=== PATIENT | female | born 1975 | race Caucasian/White ===

== ENCOUNTER → 2020-09-10 | Outpatient (CLI) | payer BC ==
--- NOTE | 2020-09-10 12:22 | Diagnostic Imaging Report ---
Indication: Routine screening. No prior studies are available for comparison. This is a baseline study. 2-D and 3-D bilateral screening mammography was performed with CAD. Scattered fibroglandular densities are identified bilaterally. No mass or malignant appearing microcalcifications are seen. Axillae are unremarkable. IMPRESSION: BI-RADS Category 1 No mammographic features suspicious for malignancy are identified. ACR BI-RADS Category 1: Negative. Result letter will be mailed to the patient. Note: At least 10% of breast cancer is not imaged by mammography. Dictated by: Dictated on workstation # [id number]
== END ==
LOC: RAD 10:46
PROVIDERS: ATTEND Obstetrics & Gynecology
DX: Z12.31 Encounter for screening mammogram for malignant neoplasm of breast (principal)
CPT/HCPCS: 77063; 77067

== ENCOUNTER 2020-12-31 06:49 | Outpatient (CLI) | payer BC ==
[~2020-12-31] VITALS: Ht 160 cm; Wt 81.4 kg
[2021-01-03] MEDS ORDERED: ESTR2TAB PO (10:15)
== END 2021-01-03 10:19 | disposition home or self-care (01) ==
LOC: PREOP 06:49
PROVIDERS: ATTEND Obstetrics & Gynecology
DX: Z01.818 Encounter for other preprocedural examination (principal)

== ENCOUNTER 2021-01-07 11:04 | Day surgery (SDC) | payer BC ==
[2021-01-07] VITALS (11 sets, daily range): BP systolic 90–134; BP diastolic 47–78
[~2021-01-07] VITALS: Ht 160 cm; Wt 81.4 kg
[~2021-01-07 11:04] MED LIST: ESTR2TAB PO
[2021-01-07] MEDS ORDERED: LIDOCAINE/EPI 1%-1:100,000 (XYLOCAINE) 20ML ONE (11:10)
[2021-01-07] MEDS ORDERED: ESTRADIOL VAGINAL CREAM 42.5 GM (ESTRACE) VG ONE (11:10)
[2021-01-07] MEDS ORDERED: ceFAZolin INJECTION 1,000 MG in WATER (STERILE) FOR INJECTION 10 ML IV ONE (11:45)
[2021-01-07] MEDS ORDERED: LACTATED RINGERS 1,000 ML IV PRN (11:45)
[2021-01-07 11:47] LABS: BASOPHILS % (AUTO) 0 % (0-10); EOSINOPHILS % (AUTO) 0 % (0-10); HEMATOCRIT 39 % (35-52); HEMOGLOBIN 12.2 g/dL (11.5-16.0); LYMPHOCYTES # (AUTO) 1.3 10^3/uL (1.0-4.0); LYMPHOCYTES % (AUTO) 24 % (12-44); MEAN CORPUSCULAR HEMOGLOBIN 28 pg (25-34); MEAN CORPUSCULAR HGB CONC 32 g/dL (32-36); MEAN CORPUSCULAR VOLUME 88 fL (80-99); MEAN PLATELET VOLUME 8.9 fL (9.0-12.2); MONOCYTES # (AUTO) 0.4 10^3/uL (0.0-1.0); MONOCYTES % (AUTO) 7 % (0-12); NEUTROPHILS # (AUTO) 3.6 10^3/uL (1.8-7.8); NEUTROPHILS % (AUTO) 69 % (42-75); PLATELET COUNT 305 10^3/uL (130-400); WHITE BLOOD COUNT 5.3 10^3/uL (4.3-11.0)
[2021-01-07] MEDS ORDERED: SEVOFLURANE (ULTANE) 15 ML INHAL SOLN ONE ×2 (11:53→14:08)
[2021-01-07] MEDS ORDERED: LIDOCAINE PF 2% 5 ML (XYLOCAINE) VIAL ONE (11:54)
[2021-01-07] MEDS ORDERED: fentaNYL INJ 100 MCG/2 ML AMP ONE ×2 (11:54→13:40)
[2021-01-07] MEDS ORDERED: ROCURONIUM 10 MG/ML 5 ML SYRINGE IV ONE (11:54)
[2021-01-07] MEDS ORDERED: proPOfol 200 MG/20 ML (DIPRIVAN) VIAL IV ONE (11:54)
[2021-01-07] MEDS ORDERED: MIDAZOLAM 2 MG/2 ML (VERSED) VIAL ONE (11:54)
[2021-01-07] MEDS ORDERED: ONDANSETRON 4 MG/2 ML (SDV) Z0FRAN ONE (11:54)
[2021-01-07] MEDS ORDERED: ceFAZolin INJECTION 1,000 MG ONE (11:56)
[2021-01-07] MEDS ORDERED: WATER (STERILE) FOR INJECTION 10 ML ONE ×2 (12:01→14:39)
--- NOTE | 2021-01-07 13:51 | Progress Note-Pre Operative ---
Pre-Operative Progress Note H&P Reviewed The H&P was reviewed, patient examined and no changes noted. Date Seen by Provider: Jan 07, 2021 Time Seen by Provider: 12:00 Date H&P Reviewed: Jan 07, 2021 Time H&P Reviewed: 12:00 Pre-Operative Diagnosis: CHANDLER VERGARA MD Jan 07, 2021 13:51
--- NOTE | 2021-01-07 13:52 | Progress Note-Post Operative ---
Post-Operative Progess Note Surgeon (s)/Lumber Marker (s) Surgeon CHANDLER ROSARIO MD Lumber Marker: JASE IQBAL MD Pre-Operative Diagnosis VIKY Post-Operative Diagnosis SAME Procedure & Operative Findings Date of Procedure 01/07/21 Procedure Performed/Findings PVS AND CYSTO Anesthesia Type GENERAL Estimated Blood Loss Estimated blood loss (mL): NONE Specimens/Packing Specimens Removed NONE Packing: ESTRACE VAG PACK CHANDLER ROSARIO MD Jan 07, 2021 13:52
--- NOTE | 2021-01-07 14:34 | Progress Note-Pre Operative ---
Pre-Operative Progress Note H&P Reviewed The H&P was reviewed, patient examined and no changes noted. Date Seen by Provider: Jan 07, 2021 Time Seen by Provider: 12:10 Date H&P Reviewed: Jan 07, 2021 Time H&P Reviewed: 12:00 Pre-Operative Diagnosis: Menorrhagia/uterovaginal prolapse/stress urinary incontinence JASE HERNANDEZ MD Jan 07, 2021 14:34
--- NOTE | 2021-01-07 14:35 | Progress Note-Post Operative ---
Post-Operative Progess Note Surgeon (s)/Police Manager (s) Surgeon JASE HERNANDEZ MD Police Manager: JASE IQBAL MD Pre-Operative Diagnosis Menorrhagia/uterovaginal prolapse/stress urinary incontinence Post-Operative Diagnosis Same Procedure & Operative Findings Date of Procedure 01/07/21 Procedure Performed/Findings Total laparoscopic hysterectomy with bilateral salpingo-oophorectomy as well as anterior and posterior colporrhaphy's with enterocele repair and with Dr. Maldonado doing a pubovaginal sling and cystoscopy Anesthesia Type GETA Estimated Blood Loss Estimated blood loss (mL): 300cc Specimens/Packing Specimens Removed Uterus fallopian tubes and ovaries Packing: ESTRACE VAG PACKWith Kerlix gauzJASE Mcgee MD Jan 07, 2021 14:35
[2021-01-07] MEDS ORDERED: OXYC1TAB87 PO (14:37)
[2021-01-07] MEDS ORDERED: IBUP-1780 PO (14:37)
[2021-01-07] MEDS ORDERED: DCS100C PO (14:37)
--- NOTE | 2021-01-07 14:38 | Discharge Inst-Surgical ---
Discharge Inst-Surgical Depart Medication/Instructions New, Converted or Re-Newed RX: Transmitted to Pharmacy Consults/Follow Up Patient Instructions: As directed Orders & Referrals Follow Up Appt: Return to clinic on Sunday, January 10, 2021 at 9:30 AM for staple removal Call to make follow up appt. for patient in 4 weeks. Activity: Rest for 24 hours, than as tolerated. Wound Care: May remove Band-Aid tomorrow. Replace as desired. Keep incisions clean and dry. Wash daily with soap and water. Please call in RX to patient pharmacy. Diet: As tolerated-Clear Liquids only if nauseated. Tomorrow, may shower or tub bathe as desired. No driving for 24 hours, no alcoholic beverages for 24 hours, and nothing per vagina (no tampons, douching, or intercourse) for 8 weeks. Patient to return to the clinic as soon as possible for: Temperature greater than 101F, Severe Pain, Foul discharge from incision or vagina, Excessive Bleeding (more than a period). Activity Activity as Tolerated: No Diet Discharge Diet: No Restrictions JASE HERNANDEZ MD Jan 07, 2021 14:38
[2021-01-07] MEDS ORDERED: KETOROLAC 30 MG/ML VIAL ONE (14:39)
[2021-01-07] MEDS ORDERED: ESTROGENS CONJ IV 25 MG/5 ML (PREMARIN) VIAL ONE (14:39)
[2021-01-07] MEDS ORDERED: morphine INJ 10 MG/ML 1ML (SYR OR VIAL) IVP ONE (14:45)
[2021-01-07] MEDS ORDERED: ESTROGENS CONJ INJECTION 25 MG in WATER (STERILE) FOR INJECTION 5 ML IV ONE (14:45)
[2021-01-07] MEDS ORDERED: ONDANSETRON 4 MG/2 ML (SDV) Z0FRAN IVP PRN ×2 (14:45)
[2021-01-07] MEDS ORDERED: fentaNYL INJ 100 MCG/2 ML AMP IVP ONE (14:45)
[2021-01-07] MEDS ORDERED: PROMETHAZINE INJ 25 MG/ML (PHENERGAN) AMP IVP ONE (14:45)
[2021-01-07] MEDS ORDERED: BENZOCAINE/MENTHOL (DERMOPLAST) 56 ML CAN TP PRN (14:45)
[2021-01-07] MEDS ORDERED: KETOROLAC 30 MG/ML VIAL IVP SCH (14:45)
[2021-01-07] MEDS ORDERED: MEPERIDINE (DEMEROL) INJ 50 MG/ML IVP ONE (14:45)
[2021-01-07] MEDS: fentaNYL INJ 100 MCG/2 ML AMP IVP PRN ×3 (16:01→23:18)
[2021-01-07] MEDS: D5 LR IV SOLUTION 1,000 ML IV SCH ×2 (18:00→23:19)
--- NOTE | 2021-01-07 18:12 | OPERATIVE REPORT ---
DATE OF SERVICE: 01/07/2021 PREOPERATIVE DIAGNOSIS: Stress urinary incontinence. POSTOPERATIVE DIAGNOSIS: Stress urinary incontinence. OPERATION PERFORMED: Cystoscopy and pubovaginal sling. SURGEON: Kan Rosario MD. REBAR FABRICATOR: Abigail. COMPLICATIONS: None ANESTHESIA: General. DESCRIPTION OF PROCEDURE: After Dr. Hayes performed the first part of his surgery that he will dictate, I went ahead and inserted a Dowell catheter draining clear urine. I passed the Desara sling instrument on both sides using the described technique. The sling was sitting nicely under the mid urethra with no tension and passage of a curved hemostat easily between it and the underlying tissue. I removed the cystoscope to perform the cystoscopy to confirm the integrity of the bladder, ureteral orifices and urethra with no foreign body and presence of this sling under the mid urethra. I left the bladder at least half full to perform a manual Valsalva maneuver that was negative. I reinserted the Dowell catheter draining clear fluid. Dr. Hayes procedure was the surgery that he will dictate. ESTIMATED BLOOD LOSS: On my part, none. Job ID: [id number] DocumentID: [id number] Dictated Date: 01/07/2021 13:53:56 Breaker Machine Tender Date: 01/07/2021 18:11:59 Dictated By: KAN ROSARIO MD
--- NOTE | 2021-01-07 18:20 | OPERATIVE REPORT ---
DATE OF SERVICE: 01/07/2021 PREOPERATIVE DIAGNOSES: 1. Menorrhagia. 2. Uterovaginal prolapse and stress urinary incontinence. POSTOPERATIVE DIAGNOSES: 1. Menorrhagia. 2. Uterovaginal prolapse and stress urinary incontinence. OPERATIVE PROCEDURE: Total laparoscopic hysterectomy with bilateral salpingo-oophorectomy followed by anterior and posterior vaginal repair with enterocele repair and with Dr. Rojas doing a pubovaginal sling and cystoscopy. OPERATIVE DESCRIPTION: With the patient in the supine position under satisfactory general anesthesia, the patient was repositioned in dorsal lithotomy position and prepped and draped in the usual fashion for abdominal and vaginal surgery using the da Derek for assistance. Weighted speculum placed in posterior fornix of vagina, cervix exposed and graft into single tooth tenaculum. Uterus sounded to 14.5 cm with uterine sound. Cervix was then serially dilated with Gerry dilators to accommodate a Theresa II manipulator, which was placed in the usual manner with a 30 mm colpotomy ring. Sutures of #1 Vicryl placed at 3 and 9 o'clock position to affix the uterus to the manipulator. Dowell catheter was placed in the urinary bladder and patient brought in low dorsal lithotomy position. A 12 mm incision was made superior to the umbilicus. Veress needle was placed through that incision into the abdominal cavity. Correct placement confirmed with water drop test and then the abdomen insufflated with 2.4 liters of carbon dioxide. The Veress needle was removed and a 12 mm Optiview laparoscopic port was placed under direct vision. The abdominal wall was transilluminated and then ports of 8 mm were placed through incisions of those sizes, 9 cm lateral to the umbilicus at a level about 2.5 to 3 cm above the umbilicus. All three port sites were infiltrated with 1% lidocaine with epinephrine prior to incision. The patient now placed in Trendelenburg, allowing the bowel to spill out of the pelvis. There was one adhesion of the omentum noted near the patient's umbilicus internally. The da Derek column was advanced on the patient and docked. Operative instrument placed in right and left lateral ports and I retired to the [employer] Derek console. At the console using the vessel sealer. The adhesion was clamped, cauterized and divided with the vessel sealer. This allowed the omentum to be completed by the pelvis. The uterus was quite lobular fairly markedly enlarged due to what appeared to be fibroids. Both ovaries were atretic appearing, but otherwise normal. Both fallopian tubes were normal. Laparoscope was rotated. The appendix was identified. It was a normal vermiform appendix and left in situ. The procedure was initiated by grasping and elevating the right tube and ovary identifying the ureter medial to that seemed to peristalse and then the mesosalpinx was clamped, cauterized and divided with the vessel sealer. This was continued across to the round ligament, across to the broad ligament to the side of the uterus and down the broad ligament to the cardinal ligament where the dissection was halted. Same procedure performed on the left, eventually allowing for removal of both tubes and ovaries with the uterus. Anterior lower uterine segment peritoneum was now exposed and using monopolar tessa on the right instrument. The peritoneum was divided. The bladder was carefully dissected down off the lower uterine segment and colpotomy incision was started at 12 o'clock position onto the colpotomy ring. An incision was continued circumferentially until the entire colpotomy ring was exposed. The uterus with the tubes and ovaries were still attached, was extracted through the vagina with some difficulty due to a size, but it was removed intact. The entire specimen was sent to pathology for permanent section. Vaginal cuff was now closed with a single suture of V-Loc barbed suture starting from the right angle and continuing all the way across to the left angle in the usual manner achieving good hemostasis and good reapproximation. At this point, the laparoscopic portion of the procedure was halted. There was no abnormal pathology inside and there was no significant bleeding. The operative instruments were removed as were the ports. The abdomen was evacuated of the insufflating gas in the process of removing the ports. All three skin incisions were stapled after closing the fascia at the supraumbilical incision with a sexfqf-ll-lojuy suture of 2-0 Vicryl. The patient was now repositioned in dorsal lithotomy position for the anterior and posterior vaginal repairs. Anterior repair was affected by placing a weighted speculum posterior fornix of vaginal wall was grasped with two Amauri clamps. The vaginal wall was opened in the midline and the bladder was carefully dissected off the muscularis of the vagina back to the pubic rami bilaterally. Endopelvic fascia and bladder wall were plicated with 2-0 Vicryl sutures, elevating the bladder and lengthening the urethra. At this point, Dr. Rojas assumed care of the patient for a pubovaginal sling and cystoscopy. I remained to assist. Upon completion of Dr. Osorio portion of the procedure, he did leave the Dowell catheter to dependent drainage. I resumed care of the patient. Resected the anterior vaginal muscularis mucosa that was redundant then closed the vaginal wall with a running locked suture of 2-0 Vicryl. Hemostasis was completed. Posterior repair was affected by placing Amauri clamps. Job ID: [id number] DocumentID: [id number] Dictated Date: 01/07/2021 14:15:56 Family Resource Coordinator Date: 01/07/2021 18:18:38 Dictated By: JASE HERNANDEZ MD
--- NOTE | 2021-01-07 18:23 | OPERATIVE REPORT ---
DATE OF SERVICE: 01/07/2021 CONTINUATION After completion of the anterior repair, posterior repair was affected by placing Amauri clamps on the perineum and the hymenal ring at 5 and 7 o'clock position. An inverted triangle of skin was removed from the perineal body and upright triangle was removed from the posterior vaginal floor. The rectovaginal space was entered sharply and dissected bluntly to the apex of the vagina where it was explored for an enterocele And a small enterocele was noted. The enterocele was reduced and plicated with a pursestring suture of 2-0 Vicryl. Additional sutures of 2-0 Vicryl were used to obliterate the rectovaginal space and to restore the perineal body. Redundant posterior vaginal wall muscularis mucosa was then removed and the vaginal wall was closed with running locked suture of 2-0 Vicryl. The closure was continued past the hymenal ring down on the perineal body then back up subcutaneous where it was tied. There was some bleeding from the posterior repair incision. Two gdnysc-em-vkdpj sutures of 2-0 Vicryl were placed to affect complete hemostasis. With hemostasis assured, the vagina was filled with Estrace vaginal cream and a pack of Kerlix gauze was placed. Digital rectal exam did demonstrate a suture through the anterior wall of the rectum. Metzenbaum scissors were passed through the rectum to clip that suture and allow the The suture ends to retract into the tissue. There were no other sutures and there was no stricture or stenosis of the rectum. Sponge and needle counts were correct on completion of procedure. Blood loss was around 300 mL. The patient tolerated the procedure well. On inspection after undraping, there was a 1.5 cm superficial tear and the skin near the inferior right labia majora. It was not through the full thickness of the skin. A layer of Dermabond was placed over it just to protect that area. Again, sponge and needle counts were correct. Estimated blood loss around 300 mL. The patient was uneventfully awakened from her general anesthesia and transferred to recovery room in stable condition. Job ID: [id number] DocumentID: [id number] Dictated Date: 01/07/2021 14:19:42 Carcass Washer Date: 01/07/2021 18:23:45 Dictated By: JASE HERNANDEZ MD [facility]
[2021-01-07] MEDS: KETOROLAC 30 MG/ML VIAL IVP SCH (20:51)
[2021-01-08] MEDS: oxyCODONE/APAP 5/325MG (PERCOCET 5) TABLET PO PRN ×2 (01:58→10:47)
[2021-01-08 03:00] VITALS: BP 121/65
[2021-01-08] MEDS: KETOROLAC 30 MG/ML VIAL IVP SCH ×2 (03:04→08:49)
[2021-01-08 07:00] VITALS: BP 110/59
--- NOTE | 2021-01-08 08:11 | Progress Note ---
Standard Progress Note Progress Notes/Assess & Plan Date Seen by a Provider: Jan 08, 2021 Time Seen by a Provider: 08:08 Progress/Assessment & Plan This patient is without complaint. She is ambulating, tolerating oral intake well and has good pain control. She has not voided yet and bladder trial is ongoing. Patient denies chest pain, denies shortness of breath, denies headache, and denies nausea and vomiting. Vital Signs Date Time Temp Pulse Resp B/P (MAP) Pulse Ox O2 Delivery O2 Flow Rate FiO2 01/08/21 03:00 36.6 88 16 121/65 (83) 96 Room Air 01/07/21 20:45 36.5 92 16 118/59 (78) 96 Room Air 01/07/21 18:00 35.9 76 16 98/52 (67) 97 Room Air 01/07/21 15:27 36.1 85 16 114/56 (75) 97 Room Air 01/07/21 15:20 36.4 12 109/67 (81) 96 Room Air 01/07/21 15:20 Room Air 01/07/21 15:10 15 109/76 (87) 98 Room Air 01/07/21 15:05 OxyMask 3 01/07/21 15:00 14 110/64 (79) 100 OxyMask 3 01/07/21 14:55 OxyMask 6 01/07/21 14:50 18 99/70 (80) 100 OxyMask 4 01/07/21 14:40 OxyMask 6 01/07/21 14:40 16 110/69 (83) 100 OxyMask 4 01/07/21 14:30 20 95/59 (71) 100 OxyMask 6 01/07/21 14:26 36.5 16 90/47 (61) 98 OxyMask 8 01/07/21 14:26 OxyMask 8 01/07/21 11:25 36.7 76 18 134/78 (96) 99 Room Air I & O 01/08/21 07:00 Intake Total 3410 ml Output Total 2300 ml Balance 1110 ml Vital signs are stable. Patient is afebrile. The abdomen is benign the surgical dressings are clean dry and intact Extremities show no clubbing or cyanosis. There is no Homans' sign. Assessment and plan Postoperative day #1 doing well. Plan is for routine convalescent care with discharge home when patient shows evidence of adequate bladder function Final Diagnosis Uterovaginal prolapse/stress urinary incontinence/menorrhagia/uterine fibroids JASE HERNANDEZ MD Jan 08, 2021 08:11
--- NOTE | 2021-01-08 08:12 | Progress Note - Urology ---
Progress Note-Urology Progress Notes/Assess & Plan Progress/Assessment & Plan SAWYER OUT. DID NOT VOID YET. DRY Final Diagnosis VIKY CHANDLER ROSARIO MD Jan 08, 2021 08:12
[2021-01-08] MEDS ORDERED: DOCUSATE SODIUM 100 MG (COLACE) CAP PO SCH (09:00)
[2021-01-08] MEDS ORDERED: ESTRADIOL 1 MG TAB (ESTRACE) PO SCH (09:00)
[2021-01-08] MEDS ORDERED: SIMETHICONE 80 MG (MYLICON) CHEW PO SCH (09:00)
[2021-01-08] MEDS ORDERED: PHEN-640 PO (11:19)
[2021-01-08] MEDS ORDERED: CIPR-226 PO (11:19)
[2021-01-08] MEDS ORDERED: IBUPROFEN 800 MG (MOTRIN) TAB PO SCH (15:00)
--- NOTE | 2021-01-09 13:11 | Anesthesia-General Post-Op ---
General Patient Condition Mental Status/LOC: Same as Preop Cardiovascular: Satisfactory Nausea/Vomiting: Absent Respiratory: Satisfactory Pain: Controlled Complications: Absent Post Op Complications Complications None Follow Up Care/Instructions Patient Instructions None needed. Anesthesia/Patient Condition Patient Condition Patient is doing well, no complaints, stable vital signs, no apparent adverse anesthesia problems. No complications reported per nursing. STACI VAZQUEZ CRNA Jan 09, 2021 13:11
== END 2021-01-08 13:00 | disposition home or self-care (01) ==
LOC: SDC 11:04 → WS 15:42 → SDC 01-08 13:00
PROVIDERS: ATTEND Obstetrics & Gynecology
DX: N92.0 Excessive and frequent menstruation with regular cycle (principal); N81.4 Uterovaginal prolapse, unspecified; N39.3 Stress incontinence (female) (male); N80.0 Endometriosis of uterus; D25.1 Intramural leiomyoma of uterus; N18.2 Chronic kidney disease, stage 2 (mild); N92.1 Excessive and frequent menstruation with irregular cycle; D25.2 Subserosal leiomyoma of uterus; N73.6 Female pelvic peritoneal adhesions (postinfective); G43.909 Migraine, unspecified, not intractable, without status migrainosus; E66.9 Obesity, unspecified; Z79.899 Other long term (current) drug therapy; Z90.49 Acquired absence of other specified parts of digestive tract; Z90.89 Acquired absence of other organs; Z80.3 Family history of malignant neoplasm of breast; Z83.3 Family history of diabetes mellitus; Z80.42 Family history of malignant neoplasm of prostate
CPT/HCPCS: 57265; 57288; 58571; 84703; 85025; 86850; 86900; 86901; 87081; 88307; 88341; 88342; C1771; 36415

== ENCOUNTER → 2021-12-12 | Outpatient (CLI) | payer BC ==
[~2021-12-12] MED LIST changes: +CIPR-226 PO; +DOCU-239 PO; -ESTR2TAB PO; +ESTR2TAB3 PO; +IBUP-1780 PO; +OXYC1TAB87 PO; +PHEN-640 PO
--- NOTE | 2021-12-12 13:26 | Diagnostic Imaging Report ---
INDICATION: Routine screening. COMPARISON is made with prior mammogram 09/10/2020. 2-D and 3-D bilateral screening mammography was performed with CAD. Scattered fibroglandular densities are identified bilaterally. A benign-appearing nodule in the lateral left breast appears stable. A nodule at the nipple line on the CC view at mid depth appears to be more prominent than prior study. This appears to be superior to the nipple line on the MLO view. Additional views are recommended. Right breast is unremarkable. There are no malignant-appearing microcalcifications identified. Axillae are unremarkable. IMPRESSION: BI-RADS 0 Left breast density. Additional views are recommended for further evaluation. ACR BI-RADS Category 0: Incomplete. (Needs additional imaging evaluation). Result letter will be mailed to the patient. Note: At least 10% of breast cancer is not imaged by mammography. Dictated by: Dictated on workstation # [id number]
== END ==
LOC: RAD 11:30
PROVIDERS: ATTEND Obstetrics & Gynecology
DX: Z12.31 Encounter for screening mammogram for malignant neoplasm of breast (principal)
CPT/HCPCS: 77063; 77067

== ENCOUNTER → 2021-12-16 | Outpatient (CLI) | payer BC ==
--- NOTE | 2021-12-16 16:57 | Diagnostic Imaging Report ---
INDICATION: Left breast density. Patient presents for additional views. CORRELATION is made with prior mammogram from 12/12/2021. Unilateral left 2-D and 3-D diagnostic mammography was performed. This includes a spot compression CC and ML views as well as conventional 90 degree lateral views. Additional views show a persistent circumscribed nodule in the upper left breast approximately 12:00 location 6 cm from the nipple. There is a 2nd small circumscribed nodule in the far posterior upper and outer left breast. IMPRESSION: BI-RADS 0 Persistent circumscribed nodule in the upper left breast approximately 6 cm from the nipple. Further evaluation with ultrasound is recommended and will be performed today. ACR BI-RADS Category 0: Incomplete. (Needs additional imaging evaluation). Result letter will be mailed to the patient. Note: At least 10% of breast cancer is not imaged by mammography. Dictated by: Dictated on workstation # [id number]
--- NOTE | 2021-12-16 17:07 | Diagnostic Imaging Report ---
INDICATION: Left breast density. CORRELATION is made with diagnostic mammogram earlier the same day and screening mammogram from 12/12/2021. Sonography interrogation of the upper left breast was performed. There is a tiny cluster of cysts at the 12:00 location, 6 cm from the nipple. In aggregate, this measures 5 mm x 3 mm x 5 mm. This likely accounts for the mammographic density. No internal vascularity is seen. IMPRESSION: BI-RADS Category 2 Probable cluster of cysts at the 12:00 location of the left breast, 6 cm from the nipple, accounting for the mammographic density. Patient may return to routine annual screening mammography. ACR BI-RADS Category 2: Benign findings. Result letter will be mailed to the patient. Note: At least 10% of breast cancer is not imaged by mammography. Dictated by: Dictated on workstation # [id number]
== END ==
LOC: RAD 14:15
PROVIDERS: ATTEND Obstetrics & Gynecology
DX: N63.25 Unspecified lump in the left breast, overlapping quadrants (principal)
CPT/HCPCS: 76642; 77065; G0279